=== PATIENT | female | born 1960 | race American Indian/Alaskan Native ===

== ENCOUNTER 2018-02-09 17:51 | Emergency (ER) | payer SELFPAY ==
[2018-02-09 18:00] VITALS: BP 154/101
[2018-02-09] MEDS ORDERED: CLEOCIN PO ONE (21:10)
--- NOTE | 2018-02-09 21:10 | Emergency Department Report ---
ED General Adult HPI - General Chief complaint: Medical Clearance Stated complaint: SPIDER BITE Time Seen by Provider: 02/09/18 21:09 Source: patient Mode of arrival: Ambulatory Limitations: No Limitations - History of Present Illness Initial comments: Patient complained of left leg spider bite 2 weeks ago. She said she was bitten by a spider 2 weeks ago she used topical antibiotics on the wound. However the wound did not heal completely and she decided to have it evaluated today in the emergency room. She said her tetanus is up-to-date. -: Gradual, week(s) (2) Location: left, lower extremity Radiation: non-radiation Severity scale (0 -10): 1 Quality: aching Improves with: none Worsens with: none Associated Symptoms: denies other symptoms Treatments Prior to Arrival: other (Topical antibiotics.) - Related Data Previous Rx's Medication Instructions Recorded Last Taken Type Clindamycin HCl 300 mg PO TID #30 capsule 02/09/18 Unknown Rx Ibuprofen [Motrin] 800 mg PO Q8HR PRN #20 tablet 02/09/18 Unknown Rx Allergies Allergy/AdvReac Type Severity Reaction Status Date / Time No Known Allergies Allergy Unverified 02/09/18 18:00 ED Review of Systems ROS: Stated complaint: SPIDER BITE Other details as noted in HPI Comment: All other systems reviewed and negative Constitutional: denies: chills, fever Eyes: denies: eye pain ENT: denies: ear pain Respiratory: no symptoms reported Cardiovascular: denies: chest pain, palpitations Endocrine: no symptoms reported Gastrointestinal: denies: abdominal pain, nausea, vomiting, diarrhea, constipation Genitourinary: denies: urgency, dysuria Musculoskeletal: denies: back pain, joint swelling Skin: rash, lesions (left leg) Neurological: denies: headache, weakness, numbness, paresthesias Psychiatric: denies: anxiety, depression Hematological/Lymphatic: denies: easy bleeding, easy bruising ED Past Medical Hx - Past Medical History Previous Medical History?: Yes Hx Asthma: Yes - Social History Smoking Status: Current Every Day Smoker Substance Use Type: Alcohol - Medications Home Medications: Home Medications Medication Instructions Recorded Confirmed Last Taken Type Clindamycin HCl 300 mg PO TID #30 capsule 02/09/18 Unknown Rx Ibuprofen [Motrin] 800 mg PO Q8HR PRN #20 tablet 02/09/18 Unknown Rx ED Physical Exam - General Limitations: No Limitations General appearance: alert, in no apparent distress - Head Head exam: Present: atraumatic, normocephalic, normal inspection - Eye Eye exam: Present: normal appearance, PERRL, EOMI Pupils: Present: normal accommodation - ENT ENT exam: Present: normal exam, normal orophraynx, mucous membranes moist - Neck Neck exam: Present: normal inspection, full ROM. Absent: tenderness - Respiratory Respiratory exam: Present: normal lung sounds bilaterally. Absent: respiratory distress, wheezes, rales, rhonchi, stridor - Cardiovascular Cardiovascular Exam: Present: regular rate, normal rhythm, normal heart sounds - GI/Abdominal GI/Abdominal exam: Present: soft, normal bowel sounds. Absent: distended, tenderness, guarding, rebound, rigid - Extremities Exam Extremities exam: Present: full ROM, normal capillary refill, other (left leg cellulitis and surrounding erythema.) - Back Exam Back exam: Present: normal inspection, full ROM. Absent: tenderness - Neurological Exam Neurological exam: Present: alert, oriented X3, CN II-XII intact - Psychiatric Psychiatric exam: Present: normal affect, normal mood - Skin Skin exam: Present: warm, rash, erythema. Absent: dry, intact, normal color ED Course Vital Signs 02/09/18 17:56 Temperature 99.2 F Pulse Rate 74 Respiratory 16 Rate Blood Pressure 154/101 O2 Sat by Pulse 98 Oximetry ED Medical Decision Making - Medical Decision Making Left cellulitis. We'll start oral antibiotics. Patient to follow up in 3 days for wound check. Critical care attestation.: If time is entered above; I have spent that time in minutes in the direct care of this critically ill patient, excluding procedure time. ED Disposition Clinical Impression: Cellulitis Qualifiers: Site of cellulitis: extremity Site of cellulitis of extremity: lower extremity Laterality: left Qualified Code(s): L03.116 - Cellulitis of left lower limb Disposition: DC-01 TO HOME OR SELFCARE Is pt being admited?: No Does the pt Need Aspirin: No Condition: Stable Instructions: Cellulitis (ED) Additional Instructions: Please follow up in the ED with her primary doctor in 3 days for wound check. Return to the emergency room if your condition worsens. Prescriptions: Clindamycin HCl 300 mg PO TID #30 capsule Ibuprofen [Motrin] 800 mg PO Q8HR PRN #20 tablet PRN Reason: Pain , Severe (7-10) Referrals: PRIMARY CARE,MD [Primary Care Provider] - 3-5 Days Time of Disposition: 21:21
== END 2018-02-09 21:28 | disposition home or self-care (01) ==
LOC: ED 17:51
DX: L03.116 Cellulitis of left lower limb (principal); J45.909 Unspecified asthma, uncomplicated; F17.200 Nicotine dependence, unspecified, uncomplicated
CPT/HCPCS: 99282

== ENCOUNTER 2019-08-23 13:47 | Emergency (ER) | payer OTHER ==
[2019-08-23 13:53] VITALS: BP 186/106
--- NOTE | 2019-08-23 16:15 | Vascular Lab Report ---
Left upper extremity venous Ultrasound HISTORY: Pain upper left arm s/p anticoagulant med injectio. TECHNIQUE: Grayscale and color imaging performed. COMPARISON: None FINDINGS: Veins are widely patent from the level of the internal jugular vein through the subclavian, axillary, brachial, basilic, radial, and ulnar veins. IMPRESSION: Negative for DVT. Signer Name: Jaren Ferro MD Signed: 08/23/2019 4:11 PM Workstation Name: [id number]
--- NOTE | 2019-08-23 16:57 | Emergency Department Report ---
Upper Extremity - [facility] Chief Complaint: Extremity Injury, Upper Stated Complaint: LEFT SHOULDER PAIN Time Seen by Provider: 08/23/19 15:24 Occurred When: >5 Days (4 months) Symptoms: Yes Pain with Movement Other History: 59-year-old -[place] female presents to the emergency room for left upper arm pain for the last 4 months. Patient states that she got a shot of either heparin or Lovenox in her arm April 2019. Patient states that she had followed back up with her primary care provider which was Jesus and had x-rays that was negative. Patient states she feels her symptoms not right. Patient reports she has been taking [id number] ibuprofen Tylenol without much relief. Patient states the pain is a 6 out of 10 and gets worse with movement. Patient states she has a history of pulmonary embolism. Patient also reports a history of asthma. ED Review of Systems ROS: Stated complaint: LEFT SHOULDER PAIN Other details as noted in HPI ED Past Medical Hx - Past Medical History Hx Asthma: Yes - Surgical History Past Surgical History?: No - Social History Smoking Status: Never Smoker - Medications Home Medications: Home Medications Medication Instructions Recorded Confirmed Last Taken Type Clindamycin HCl 300 mg PO TID #30 capsule 02/09/18 Unknown Rx Ibuprofen [Motrin] 800 mg PO Q8HR PRN #20 tablet 02/09/18 Unknown Rx traMADoL [Ultram] 50 mg PO Q6HR PRN #12 tablet 08/23/19 Unknown Rx Upper Extremity Exam - Exam General: Vital signs noted. No distress. Alert and acting appropriately. Head and Torso: No HEENT Abnormality, No Neck Tenderness, No Chest/Lungs Abnormality, No Abdominal Tenderness, No Back Tenderness Shoulder Exam: Yes Normal Range of Motion in Shoulder, No Shoulder Tenderness, No Clavicle Tenderness, No Shoulder Deformity, No AC Joint Tenderness Arm Exam: Yes Arm/Humerus Tenderness, No Arm Deformity Elbow: No Elbow Tenderness, No Normal Range of Motion in Elbow, No Elbow Deformity Forearm: No Forearm Tenderness, No Forearm Deformity, No Pain with Pronation, No Pain with Supination Wrist: Yes Normal ROM in Wrist, No Wrist Tenderness, No Wrist Deformity, No Snuffbox Tenderness, No Pain with Axial Thumb Compression Hand: Yes Normal ROM in Digit(s), No Hand Tenderness, No Hand Deformity, No Digit Tenderness, No Digit(s) Deformity, No Tendon Dysfunction CMS Exam: No Broken Skin, No Normal Distal Pulses, No Normal Capillary Refill, No Normal Distal Sensation ED Course Vital Signs 08/23/19 13:51 Temperature 97.8 F Pulse Rate 88 Respiratory 20 Rate Blood Pressure 186/106 O2 Sat by Pulse 96 Oximetry ED Medical Decision Making - Radiology Data Radiology results: report reviewed Referring Physician:TARYN KAMARAPatient Name:DEB DOYLEPatient ID:[id number] of :[id number]:FemaleAccession:[id number] Date:[id number] Status:Finalized Findings [facility] [address] [place] [address] Vascular Lab Report Signed Patient: DEB DOYLE MR#: [id number] : 1960 Acct:[id number] Age/Sex: 59 / F ADM Date: 08/23/19 Loc: ED Attending Dr: Ordering Physician: KATHY GUADARRAMA Date of Service: 08/23/19 Procedure(s): VL venous duplex UE Accession Number(s): [id number] cc: KATHY GUADARRAMA Left upper extremity venous Ultrasound HISTORY: Pain upper left arm s/p anticoagulant med injectio. TECHNIQUE: Grayscale and color imaging performed. COMPARISON: None FINDINGS: Veins are widely patent from the level of the internal jugular vein through the subclavian, axillary, brachial, basilic, radial, and ulnar veins. IMPRESSION: Negative for DVT. Signer Name: Jaren Ferro MD Signed: 08/23/2019 4:11 PM Workstation Name: [id number] Transcribed By: JW Dictated By: Jaren Ferro MD Electronically Authenticated By: Jaren Ferro MD Signed Date/Time: 08/23/19 161 DD/ 09 TD/TT: - Medical Decision Making 59-year-old -[place] female presents to the emergency room for left upper arm pain for the last 4 months. Patient states that she got a shot of either heparin or Lovenox in her arm April 2019. Patient states that she had followed back up with her primary care provider which was Lee and had x-rays that was negative. Patient states she feels her symptoms not right. Patient reports she has been taking [id number] ibuprofen Tylenol without much relief. Patient states the pain is a 6 out of 10 and gets worse with movement. Patient states she has a history of pulmonary embolism. Patient also reports a history of asthma. Ultrasound of left upper arm shows negative for DVT. Patient will be referred to a primary care provider and orthopedic provider. Critical care attestation.: If time is entered above; I have spent that time in minutes in the direct care of this critically ill patient, excluding procedure time. ED Disposition Clinical Impression: Left upper arm pain Disposition: DC-01 TO HOME OR SELFCARE Is pt being admited?: No Does the pt Need Aspirin: No Condition: Stable Additional Instructions: Ultrasound was negative for any DVT/clot of your left upper arm. Please take Ultram for pain management. Follow-up with an orthopedic provider as well as a primary care provider for further evaluation. Prescriptions: traMADoL [Ultram] 50 mg PO Q6HR PRN #12 tablet PRN Reason: Pain Referrals: HARITHA OLSEN [Other] - 3-5 Days J CARLOS TOPETE MD [Staff Physician] - 3-5 Days
== END 2019-08-23 17:08 | disposition home or self-care (01) ==
LOC: ED 13:47
DX: M79.602 Pain in left arm (principal); J45.909 Unspecified asthma, uncomplicated; Z79.899 Other long term (current) drug therapy; Z86.711 Personal history of pulmonary embolism
CPT/HCPCS: 99283

== ENCOUNTER 2020-06-09 13:40 | Emergency (ER) | payer OTHER ==
[2020-06-09 14:01] VITALS: BP 157/102
--- NOTE | 2020-06-09 14:13 | Emergency Department Report ---
Chief Complaint: Pain General Stated Complaint: HEADACHE, EYE PAIN, CHILLS Time Seen by Provider: 06/09/20 14:12 - HPI History of Present Illness: Complains of sudden onset body aches, chills, headache, nausea, fever at 10:00 this morning. No known ill contacts. No cough shortness of breath abdominal pain diarrhea or dysuria. - Exam Vital Signs: Vital Signs 06/09/20 13:57 Temperature 100.7 F H Pulse Rate 115 H Respiratory 22 Rate Blood Pressure 157/102 O2 Sat by Pulse 95 Oximetry Physical Exam: Appears to not feel well, mildly tachycardic, keeps eyes closed, holds emesis by but no vomiting, no focal neurologic findings MSE screening note: Focused history and physical exam performed. Due to findings the following was ordered: Labs ED Disposition for MSE Condition: Stable
[2020-06-09 15:10] LABS: Basophils % (Auto) 0.4 % (0.0-1.8); Eosinophils % (Auto) 0.1 % (0.0-4.3); Hematocrit 42.5 % (30.3-42.9); Hemoglobin 14.5 gm/dl (10.1-14.3); Lymphocytes # (Auto) 0.8 K/mm3 (1.2-5.4); Lymphocytes % (Auto) 7.3 % (13.4-35.0); Mean Corpuscular HGB Conc 34 % (30-34); Mean Corpuscular Volume 88 fl (79-97); Monocytes # (Auto) 0.6 K/mm3 (0.0-0.8); Monocytes % (Auto) 4.9 % (0.0-7.3); Platelet Count 166 K/mm3 (140-440); Red Blood Count 4.81 M/mm3 (3.65-5.03); Red Cell Distribution Width 13.3 % (13.2-15.2)
[2020-06-09 16:12] LABS: Alanine Aminotransferase 38 units/L (7-56); Albumin 4.5 g/dL (3.9-5); BUN/Creatinine Ratio 14; Blood Urea Nitrogen 11 mg/dL (7-17); Calcium 9.1 mg/dL (8.4-10.2); Hemolysis Index 15
[2020-06-09] MEDS ORDERED: ACETAMINOPHEN 325 MG TAB PO ONE (16:20)
[2020-06-09] MEDS ORDERED: ONDANSETRON 4 MG ODT TAB PO ONE (16:22)
--- NOTE | 2020-06-09 16:46 | XRay Report ---
CHEST PA AND LATERAL VIEWS INDICATION: fever. COMPARISON: None. FINDINGS: Support devices: None. Heart: Within normal limits. Lungs/Pleura: No acute pulmonary or pleural findings. IMPRESSION: 1. No acute findings. Signer Name: Fuad Diaz MD Signed: 06/09/2020 4:42 PM Workstation Name: [id number]
[2020-06-09] MEDS ORDERED: ACETAMINOPHEN 500 MG TAB PO ONE (16:55)
--- NOTE | 2020-06-09 17:04 | Emergency Department Report ---
ED General Adult HPI - General Chief complaint: Pain General Stated complaint: HEADACHE, EYE PAIN, CHILLS Time Seen by Provider: 06/09/20 14:12 Source: patient Mode of arrival: Wheelchair Limitations: No Limitations - History of Present Illness Initial comments: 59-year-old female, history of asthma, PE, presents to ED with fever and chills. Patient reports associated headache, body aches, nausea and vomiting. Her symptoms began this morning at 10 AM while she was at work. Patient states she has not taken any medication for her fever or headache. Patient denies any abdominal pain, chest pain, shortness of breath, cough, loss of smell or taste. She denies any known exposure to anyone who is tested positive for COVID-19. -: hour(s) (7), This morning Quality: aching Consistency: constant Improves with: none Worsens with: none Associated Symptoms: fever/chills, headaches, nausea/vomiting. denies: chest pain, cough, shortness of breath Treatments Prior to Arrival: none - Related Data Previous Rx's Medication Instructions Recorded Last Taken Type Clindamycin HCl 300 mg PO TID #30 capsule 02/09/18 Unknown Rx Ibuprofen [Motrin] 800 mg PO Q8HR PRN #20 tablet 02/09/18 Unknown Rx traMADoL [Ultram] 50 mg PO Q6HR PRN #12 tablet 08/23/19 Unknown Rx Menthol/Camphor [[place] 1 applicatio TP QID PRN #1 tube 11/01/19 Unknown Rx Ointment] predniSONE [Deltasone] 40 mg PO QDAY 5 Days #10 tab 11/01/19 Unknown Rx traMADoL [Ultram] 50 mg PO Q6HR PRN #12 tablet 11/01/19 Unknown Rx Ondansetron [Zofran Odt] 4 mg PO Q8HR PRN #20 tab.rapdis 06/09/20 Unknown Rx Allergies Allergy/AdvReac Type Severity Reaction Status Date / Time No Known Allergies Allergy Verified 06/09/20 13:57 ED Review of Systems ROS: Stated complaint: HEADACHE, EYE PAIN, CHILLS Other details as noted in HPI Comment: All other systems reviewed and negative Constitutional: chills, fever ENT: other (Denies loss of smell or taste) Respiratory: denies: cough, shortness of breath Cardiovascular: denies: chest pain Gastrointestinal: nausea, vomiting. denies: abdominal pain, diarrhea Musculoskeletal: myalgia Neurological: headache ED Past Medical Hx - Past Medical History Hx Asthma: Yes - Surgical History Additional Surgical History: HYSTO/ BACK - Social History Smoking Status: Never Smoker Substance Use Type: None - Medications Home Medications: Home Medications Medication Instructions Recorded Confirmed Last Taken Type Clindamycin HCl 300 mg PO TID #30 capsule 02/09/18 Unknown Rx Ibuprofen [Motrin] 800 mg PO Q8HR PRN #20 tablet 02/09/18 Unknown Rx traMADoL [Ultram] 50 mg PO Q6HR PRN #12 tablet 08/23/19 Unknown Rx Menthol/Camphor [[place] 1 applicatio TP QID PRN #1 tube 11/01/19 Unknown Rx Ointment] predniSONE [Deltasone] 40 mg PO QDAY 5 Days #10 tab 11/01/19 Unknown Rx traMADoL [Ultram] 50 mg PO Q6HR PRN #12 tablet 11/01/19 Unknown Rx Ondansetron [Zofran Odt] 4 mg PO Q8HR PRN #20 tab.rapdis 06/09/20 Unknown Rx ED Physical Exam - General Limitations: No Limitations General appearance: alert, in no apparent distress - Head Head exam: Present: atraumatic, normocephalic - Eye Eye exam: Present: normal appearance, EOMI - ENT ENT exam: Present: mucous membranes moist - Neck Neck exam: Present: normal inspection, full ROM. Absent: meningismus - Respiratory Respiratory exam: Present: normal lung sounds bilaterally. Absent: respiratory distress - Cardiovascular Cardiovascular Exam: Present: normal rhythm, tachycardia - GI/Abdominal GI/Abdominal exam: Present: soft. Absent: distended, tenderness - Extremities Exam Extremities exam: Present: normal inspection - Neurological Exam Neurological exam: Present: alert, oriented X3, CN II-XII intact. Absent: motor sensory deficit - Psychiatric Psychiatric exam: Present: normal affect, normal mood - Skin Skin exam: Present: warm, dry, intact, normal color ED Course Vital Signs 06/09/20 06/09/20 06/09/20 13:57 16:59 17:14 Temperature 100.7 F H Pulse Rate 115 H 104 H Respiratory 22 18 18 Rate Blood Pressure 157/102 O2 Sat by Pulse 95 95 Oximetry ED Medical Decision Making - Lab Data Result diagrams: 06/09/20 14:17 06/09/20 14:17 - Radiology Data Radiology results: report reviewed, image reviewed - Medical Decision Making 59-year-old female presents to ED with complaint of fever, chills, and body ach es that began this morning. Patient denies any cough or shortness of breath. Denies any urinary symptoms. Chest x-ray is normal. O2 sats are normal. Patient has low-grade fever, so Tylenol given. Outpatient Covid testing advised. Return precautions given. - Differential Diagnosis Fever, viral illness, COVID-19 Critical care attestation.: If time is entered above; I have spent that time in minutes in the direct care of this critically ill patient, excluding procedure time. ED Disposition Clinical Impression: Fever, Viral illness Disposition: DC- TO HOME OR SELFCARE Is pt being admited?: No Condition: Stable Instructions: COVID-19, Fever, Adult, [id number], Prevent the Spread of COVID-19 if You Are Sick - [facility] Additional Instructions: Outpatient COVID-19 testing is recommended. Please quarantine away from others for the next 14 days. Return to the ER if your symptoms worsen. Prescriptions: Ondansetron [Zofran Odt] 4 mg PO Q8HR PRN #20 tab.rapdis PRN Reason: Vomiting Referrals: PRIMARY CARE, [Primary Care Provider] - 3-5 Days [facility] [Outside] - 3-5 Days [facility] [Provider Group] - 3-5 Days Time of Disposition: 17:00
== END 2020-06-09 17:15 | disposition home or self-care (01) ==
LOC: ED 13:40
DX: B34.9 Viral infection, unspecified (principal); R50.9 Fever, unspecified; J45.909 Unspecified asthma, uncomplicated; Z98.890 Other specified postprocedural states; Z79.1 Long term (current) use of non-steroidal anti-inflammatories (NSAID); Z79.2 Long term (current) use of antibiotics; Z79.899 Other long term (current) drug therapy
CPT/HCPCS: 36415; 71046; 80053; 85025; Q0162